=== PATIENT | female | born 1980 | race Caucasian/White ===

== ENCOUNTER → 2020-12-09 13:26 | Outpatient (BNVA) | payer SELFPAY | PROVIDERS: Family Provider Family Medicine; PCP Family Medicine; Visit Provider Nurse Practitioner | DX: J02.0 Streptococcal pharyngitis (principal); Z68.43 Body mass index [BMI] 50.0-59.9, adult; F17.210 Nicotine dependence, cigarettes, uncomplicated; Z71.89 Other specified counseling | CPT/HCPCS: 87880 ==

== ENCOUNTER 2021-12-18 11:04 | Outpatient (CLI) | payer OTHER, MEDICAID, SELFPAY ==
--- NOTE | 2021-12-18 11:19 | MM_ITS ---
WS: [id number] ADDITIONAL VIEWS RIGHT MAMMOGRAM RIGHT BREAST ULTRASOUND HISTORY: RIGHT BREAST PAIN COMPARISON: None available. RIGHT MAMMOGRAM: Spot compression views and true ML. Palpable marker placed in the upper inner quadrant. There is no underlying mass or distortion. No cherri cifications. Minimal scattered fibroglandular densities. RIGHT BREAST ULTRASOUND 2-D and color Doppler imaging submitted. Ultrasound is directed to the upper inner quadrant of the RIGHT breast near 2-3 o'clock. There is no mass identified. MM/[place] [id number] IMPRESSION: BI-RADS: 2-Benign FOLLOW UP: 1 Year Follow-up Strongly recommend bilateral screening mammogram. There were no prior studies f or comparison.
== END 2021-12-18 11:05 | disposition home or self-care (01) ==
PROVIDERS: Family Provider Family Medicine; PCP Family Medicine; Visit Provider Family Medicine
DX: N64.4 Mastodynia (principal)
CPT/HCPCS: 76642; 77061